=== PATIENT | male | born 1995 | race Caucasian/White ===

== ENCOUNTER 2017-09-01 17:49 | Emergency (ER) | payer OTHER ==
[~2017-09-01] VITALS: Ht 172.7 cm; Wt 79.5 kg
[2017-09-01 18:04] VITALS: TEMP 36.6; Ht 172.7 cm; Wt 79.5 kg
[2017-09-01 18:28] LABS: BASO % 0.1 %; BASO ABS # 0.01 K/uL (0-0.2); EOS % 0.6 %; EOS ABS # 0.07 K/uL (0-0.5); HEMATOCRIT 44.5 % (42-52); HEMOGLOBIN 16.3 g/dL (14.0-18.0); IG# 0.02 K/uL (0.00-0.02); LYMPH % 23.9 %; LYMPH ABS # 2.65 K/uL (1.2-3.4); MEAN CELL VOLUME 85.7 fL (80-100); MEAN CORPUSCULAR HEMOGLOBIN 31.4 pg (25-34); MEAN CORPUSCULAR HGB CONC 36.6 g/dl (32-36); MONO % 6.2 %; MONO ABS # 0.69 K/uL (0.11-0.59); NEUT ABS # 7.67 K/uL (1.4-6.5); PLATELET COUNT 254 K/uL (130-400); RED CELL DISTRIBUTION WIDTH CV 12.9 % (11.5-14.5); RED CELL DISTRIBUTION WIDTH SD 40.7 fL (36.4-46.3); WHITE BLOOD COUNT 11.11 K/uL (4.8-10.8)
[2017-09-01 18:54] LABS: ALBUMIN 4.4 gm/dl (3.4-5.0); CALCIUM 9.1 mg/dl (8.5-10.1); CREATININE 1.09 mg/dl (0.60-1.40); POTASSIUM 3.7 mmol/L (3.5-5.1)
[2017-09-01 18:57] LABS: TOTAL PROTEIN 7.9 gm/dl (6.4-8.2)
[2017-09-01 22:00] VITALS: BP 124/76; PULSE 67; O2SAT 100
--- NOTE | 2017-09-01 22:22 | EMERGENCY ROOM VISIT NOTE ---
History Report prepared by Mavis: Lita Echeverria Under the Supervision of: Dr. Darren Chand M.D. First contact with patient: 20:18 Chief Complaint: ABDOMINAL PAIN Stated Complaint: STOMACH PAIN- [facility] REFERRED Nursing Triage Summary: Patient states about 2 weekends ago he had an episode of vomitting since then intermittent lower abdominal pain that sometimes radiates upward but states mostly pain at waist line. denies n/v/d History of Present Illness The patient is a 21 year old male who presents to the Emergency Room with complaints of intermittent abdominal pain starting 2 weeks ago. He was sent to the ED from [facility] over concerns of appendicitis. The patient had an episode of vomiting and diarrhea 2 weeks ago which he thought was food poisoning. These symptoms resolved quickly. After that, he had an episode of diarrhea after drinking chocolate milk. 2 days ago, he started having abdominal pain again. He felt gassy. He had to stop [address] here from [place] to use the restroom. He did not have diarrhea at this time. He has never experienced this before. He currently does not have any abdominal pain. His last diarrhea was last week. He has felt constipated recently. He has been taking Pepto Bismol to some relief. He was able to play basketball today without any significant discomfort. He has felt some tugging in his abdomen which makes him suspicious for a hernia or muscle strain/pull. He has had some difficulty with urination, but no pain. He reports cough and congestion. He denies any testicular pain, fever, or chills. He denies any history of lactose intolerance. He has continued to have a normal appetite. He denies any previous abdominal surgeries. Source of History: patient Onset: 2 weeks ago Position: abdomen Quality: other (gas pain) Timing: intermittent Associated Symptoms: + cough, + vomiting (resolved), + diarrhea (resolved), + urinary symptoms, No fevers, No chills Note: Pt reports congestion. Pt denies testicular pain. Review of Systems See HPI for pertinent positives & negatives. A total of 10 systems reviewed and were otherwise negative. Past Medical & Surgical No previous abdominal surgeries. Family History No pertinent family history stated. Social History Smoking Status: Never Smoker Occupation Status: [employer] student Physical Exam Vital Signs Date Time Temp Pulse Resp B/P (MAP) Pulse Ox O2 Delivery O2 Flow Rate FiO2 09/01/17 22:00 67 124/76 100 09/01/17 20:18 69 18 170/78 100 Room Air 09/01/17 18:04 36.6 83 16 127/68 98 Room Air Physical Exam GENERAL: Patient is in no acute distress. HEENT: No acute trauma, normocephalic atraumatic, mucous membranes moist, no nasal congestion, no scleral icterus. NECK: No stridor, no adenopathy, no meningismus, trachea is midline. LUNGS: Clear to auscultation bilaterally, no wheeze, no rhonchi, breath sounds equal. HEART: Without murmurs gallops or rubs, regular rate and rhythm. ABDOMEN: Soft, very mildly tender in both lower quadrants, bowel sounds positive , no hernias, no peritonitis. GROIN: No testicular discomfort or swelling. No obvious hernia. EXTREMITIES: No cyanosis or edema, full range of motion of all the joints without pain or difficulty, no signs for acute trauma. NEUROLOGIC: Oriented x 3, no acute motor or sensory deficits, no focal weakness. SKIN: No rash, no jaundice, no diaphoresis. Medical Decision & Procedures Laboratory Results 09/01/17 18:15 Red Blood Count 5.19, Mean Corpuscular Volume 85.7, Mean Corpuscular Hemoglobin 31.4, Mean Corpuscular Hemoglobin Concent 36.6, Mean Platelet Volume 10.0, Neutrophils (%) (Auto) 69.0, Lymphocytes (%) (Auto) 23.9, Monocytes (%) (Auto) 6.2, Eosinophils (%) (Auto) 0.6, Basophils (%) (Auto) 0.1, Neutrophils # (Auto) 7.67, Lymphocytes # (Auto) 2.65, Monocytes # (Auto) 0.69, Eosinophils # (Auto) 0.07, Basophils # (Auto) 0.01 09/01/17 18:15 Test 09/01/17 18:15 White Blood Count 11.11 K/uL (4.8-10.8) Red Blood Count 5.19 M/uL (4.7-6.1) Hemoglobin 16.3 g/dL (14.0-18.0) Hematocrit 44.5 % (42-52) Mean Corpuscular Volume 85.7 fL (80-100) Mean Corpuscular Hemoglobin 31.4 pg (25-34) Mean Corpuscular Hemoglobin Concent 36.6 g/dl (32-36) Platelet Count 254 K/uL (130-400) Mean Platelet Volume 10.0 fL (7.4-10.4) Neutrophils (%) (Auto) 69.0 % Lymphocytes (%) (Auto) 23.9 % Monocytes (%) (Auto) 6.2 % Eosinophils (%) (Auto) 0.6 % Basophils (%) (Auto) 0.1 % Neutrophils # (Auto) 7.67 K/uL (1.4-6.5) Lymphocytes # (Auto) 2.65 K/uL (1.2-3.4) Monocytes # (Auto) 0.69 K/uL (0.11-0.59) Eosinophils # (Auto) 0.07 K/uL (0-0.5) Basophils # (Auto) 0.01 K/uL (0-0.2) RDW Standard Deviation 40.7 fL (36.4-46.3) RDW Coefficient of Variation 12.9 % (11.5-14.5) Immature Granulocyte % (Auto) 0.2 % Immature Granulocyte # (Auto) 0.02 K/uL (0.00-0.02) Anion Gap 7.0 mmol/L (3-11) Est Creatinine Clear Calc Drug Dose 105.4 ml/min Estimated GFR () 113.4 Estimated GFR (Non- 97.9 BUN/Creatinine Ratio 14.1 (10-20) Calcium Level 9.1 mg/dl (8.5-10.1) Total Bilirubin 0.5 mg/dl (0.2-1) Aspartate Amino Transf (AST/SGOT) 14 U/L (15-37) Alanine Aminotransferase (ALT/SGPT) 21 U/L (12-78) Alkaline Phosphatase 142 U/L (45-117) Total Protein 7.9 gm/dl (6.4-8.2) Albumin 4.4 gm/dl (3.4-5.0) Globulin 3.5 gm/dl (2.5-4.0) Albumin/Globulin Ratio 1.3 (0.9-2) Laboratory results reviewed by me. ED Course 2058: The patient was evaluated in room B12A. A complete history and physical exam was performed. 2120: Urine dip was negative for infection or blood. I spoke with the patient's mother at length who is a physician. I discussed results and discharge instructions: They verbalized understanding and agreement. The patient is ready for discharge. Medical Decision Differential diagnoses considered include musculoskeletal pain, mesenteric adenitis, appendicitis, food borne illness, viral illness, hernia. There is a very mild leukocytosis at 11, this could be consistent with infection or the stress of his situation. No anemia. No significant electrolyte abnormality, kidney failure or hepatitis. Urine dip shows no signs of infection or blood. The patient was not febrile, he was not toxic. On exam , there was no peritonitis. He had some very mild discomfort with palpation of both lower quadrants. The patient has had symptoms intermittently for 2 weeks. Today, he played basketball without discomfort. He was sent here from [facility] for the possibility of appendicitis. I had a long talk with the patient. I spoke also with his family over the phone. His mother is a physician. After a lengthy talk, after shared decision making, it was decided that we would use a watch and wait approach. No CT or further imaging tonight. The patient will return for any worsening symptoms or fever or vomiting or if not improving within 24 hours. He will stick to a very bland and simple diet, Tylenol for pain, rest, avoidance of exercise was suggested. At this point, the cause for his presentation is not completely clear. Medication Reconcilliation Current Medication List: was personally reviewed by me Blood Pressure Screening Patient's blood pressure: Elevated blood pressure Blood pressure disposition: Elevated BP felt to be situational Impression Primary Impression: Right lower quadrant abdominal pain Scribe Attestation The scribe's documentation has been prepared under my direction and personally reviewed by me in its entirety. I confirm that the note above accurately reflects all work, treatment, procedures, and medical decision making performed by me. Departure Information Dispostion Home / Self-Care Referrals No Doctor, Assigned (PCP) Forms HOME CARE DOCUMENTATION FORM, IMPORTANT VISIT INFORMATION Patient Instructions My [facility] Additional Instructions heat to the area bland diet---crackers, soup, toast, gatorade, rice, bland chicken breast tylenol for pain rest no sports or running return for worsening pain as discussed, fever, vomiting
== END 2017-09-01 22:00 | disposition home or self-care (01) ==
LOC: C.EDB 17:52
DX: R10.31 Right lower quadrant pain (principal)